=== PATIENT | female | born 1980 | race Caucasian/White ===

== ENCOUNTER 2019-03-26 16:39 | Emergency (ER) | payer MEDICAID, OTHER ==
[~2019-03-26] VITALS: Ht 170.2 cm; Wt 57.7 kg
[2019-03-26 16:50] VITALS: BP 132/81
--- NOTE | 2019-03-26 16:50 | NUR ---
PATIENT AMBULATED TO ER BED 5.
--- NOTE | 2019-03-26 17:12 | NUR ---
Dr. Cruz evaluating patient at bedside.
--- NOTE | 2019-03-26 17:16 | NUR ---
PT CAME WITH CHEST PAIN 4/10 , RADIATING TOWARS HER RT SHOULDER, STATES TO HAVE SOB WHILE WALKING . FEELS HEAVINESS AT THE CHEST AT THIS TIME. PT ON NC , O2 2LPM . PT RESTING COMFORTABLY IN GURNEY, NORMAL BREATHING. LUNGS SOUNDS CLEAR. DENIES ANY PAST MEDICAL HISTORY.
[2019-03-26 18:02] LABS: BASOPHILS % (AUTO) 0.6 % (0.0-2.0); EOSINOPHILS # (AUTO) 0.1 K/uL (0-0.4); HEMATOCRIT 40.2 % (36-48); HEMOGLOBIN 13.5 g/dL (12.0-16.0); LYMPHOCYTES # (AUTO) 2.1 K/uL (2.5-16.5); LYMPHOCYTES % (AUTO) 25.8 % (20.5-51.1); MEAN CORPUSCULAR HEMOGLOBIN 29 pg (27-31); MEAN CORPUSCULAR HGB CONC 34 g/dL (33-37); MONOCYTES # (AUTO) 0.4 K/uL (0.8-1.0); MONOCYTES % (AUTO) 4.8 % (1.7-9.3); NEUTROPHILS # (AUTO) 5.6 K/uL (1.8-7.7); NEUTROPHILS % (AUTO) 67.8 % (42.2-75.2); PLATELET COUNT (AUTO) 221 K/uL (140-450); RED BLOOD CELL COUNT(AUTO) 4.67 MIL/uL (4.20-5.40); RED CELL DISTRIBUTION WIDTH 13.7 % (11.6-13.7); WHITE BLOOD COUNT (AUTO) 8.3 K/uL (4.8-10.8)
[2019-03-26 18:14] LABS: MAGNESIUM 1.9 mg/dL (1.8-2.4)
[2019-03-26 18:15] LABS: PROTHROMBIN TIME 10.8 secs (10.8-13.4)
[2019-03-26 18:18] LABS: APPEARANCE,URINE HAZY (CLEAR); BILIRUBIN,URINE NEGATIVE (NEGATIVE); BLOOD, URINE NEGATIVE (NEGATIVE); COLOR,URINE YELLOW (YELLOW); LEUKOCYTE ESTERASE ,URINE NEGATIVE (NEGATIVE); NITRITE, URINE NEGATIVE (NEGATIVE); PH,URINE 8.5 (5.0-9.0); UGLUCOSE NEGATIVE (NEGATIVE)
[2019-03-26 18:19] LABS: ALBUMIN 3.9 g/dL (3.4-5.0); CARBON DIOXIDE 27.4 mmol/L (21-32); CREATININE 0.9 mg/dL (0.6-1.3); POTASSIUM 3.4 mmol/L (3.5-5.1); TOTAL BILIRUBIN 0.4 mg/dL (0.0-1.0)
[2019-03-26 18:23] LABS: BARBITURATE, URINE NEG. ng/ml (NEG <=200); BENZODIAZEPINE, URINE NEG. ng/mL (NEG <=200); CANNABINOID, URINE POS. ng/mL (NEG <=50); COCAINE, URINE NEG. ng/mL (NEG <=300); OPIATE, URINE NEG. ng/mL (NEG <=2000); PHENCYCLIDINE SCREEN,URINE NEG. ng/mL (NEG <=25)
[2019-03-26 18:24] LABS: C-REACTIVE PROTEIN QUANT < 0.2 mg/dL (0.0-0.9)
[2019-03-26 18:30] LABS: D-DIMER < 100 ng/ml (0-400)
--- NOTE | 2019-03-26 18:30 | NUR ---
PATIENT RESTING AT THIS TIME. NO SIGNS OF DISTRESS.
[2019-03-26 19:29] VITALS: BP 132/88
--- NOTE | 2019-03-26 19:29 | NUR ---
Patient discharged with v/s stable. Written and verbal after care instructions given and explained. Patient alert, oriented and verbalized understanding of instructions. Ambulatory with steady gait. All questions addressed prior to discharge. ID band removed. Patient advised to follow up with PMD. Rx of VISTARIL 25MG given. Patient educated on indication of medication including possible reaction and side effects. Opportunity to ask questions provided and answered.
== END 2019-03-26 19:29 | disposition home or self-care (01) ==
LOC: MED 16:39
DX: F41.0 Panic disorder [episodic paroxysmal anxiety] (principal); F12.90 Cannabis use, unspecified, uncomplicated
CPT/HCPCS: 36415; 71045; 80053; 80305; 81003; 81025; 83735; 83880; 84484; 85025; 85379; 85610; 85730; 86140; 93005; 99284; G0482; Q0092

== ENCOUNTER 2020-05-11 16:40 | Emergency (ER) | payer MEDICAID, OTHER ==
[~2020-05-11] VITALS: Ht 170.2 cm; Wt 62.1 kg
[2020-05-11 16:45] VITALS: BP 147/90
--- NOTE | 2020-05-11 16:48 | NUR ---
Pt ambulated to bed 5.
--- NOTE | 2020-05-11 17:00 | NUR ---
PT C/O EPIGASTRIC PAIN ACCOMPANIED BY NAUSEA AND VOMITING SINCE YESTERDAY, SEEN AT [facility] AND DIAGNOSED WITH GASTRITIS. STATES SHE WANTS TESTS AND ULTRASOUND DONE. AAOX4 WITH EVEN AND STEADY GAIT; PT DENIES ANY FEVER, CP, SOB, OR COUGH AT THIS TIME; PATIENT STATES PAIN OF 10/10 AT THIS TIME; VSS; PATIENT POSITIONED FOR COMFORT; HOB ELEVATED; BEDRAILS UP X1; BED DOWN. ER MADE AWARE OF PT STATUS. Addendum: 05/11/20 at 1812 by [facility] PT ALSO C/O OF LOWER BACK PAIN AT THIS TIME.
[2020-05-11] MEDS: NACL 0.9% 1,000 ML IV ONE (17:15)
[2020-05-11] MEDS: MORPHINE SULFATE 4 MG/ML SYR IVP ONE ×2 (17:16→19:19)
[2020-05-11] MEDS: ONDANSETRON 4 MG/2 ML VIAL IVP ONE ×2 (17:16→19:54)
[2020-05-11 17:18] LABS: BASOPHILS % (AUTO) 0.2 % (0.0-2.0); EOSINOPHILS % (AUTO) 0.2 % (0.0-4.0); HEMATOCRIT 44.1 % (36-48); HEMOGLOBIN 14.4 g/dL (12.0-16.0); LYMPHOCYTES # (AUTO) 1.6 K/uL (2.5-16.5); LYMPHOCYTES % (AUTO) 9.4 % (20.5-51.1); MEAN CORPUSCULAR HEMOGLOBIN 29 pg (27-31); MEAN CORPUSCULAR HGB CONC 33 g/dL (33-37); MEAN CORPUSCULAR VOLUME 87.8 fL (80-94); MONOCYTES # (AUTO) 0.9 K/uL (0.8-1.0); NEUTROPHILS # (AUTO) 14.7 K/uL (1.8-7.7); NEUTROPHILS % (AUTO) 85.2 % (42.2-75.2); PLATELET COUNT (AUTO) 277 K/uL (140-450); RED BLOOD CELL COUNT(AUTO) 5.03 MIL/uL (4.20-5.40); RED CELL DISTRIBUTION WIDTH 12.9 % (11.6-13.7); WHITE BLOOD COUNT (AUTO) 17.2 K/uL (4.8-10.8)
[2020-05-11 17:33] LABS: ALBUMIN 4.4 g/dL (3.4-5.0); ANION GAP 22.1 (8-16); CREATININE 0.9 mg/dL (0.6-1.3); POTASSIUM 3.1 mmol/L (3.5-5.1); TOTAL BILIRUBIN 0.7 mg/dL (0.0-1.0)
--- NOTE | 2020-05-11 18:20 | NUR ---
PATIENT REPORTS HAVING PRESSURE LIKE STERNAL CP 01/20. DR. MOHAN NOTIFIED.
[2020-05-11] MEDS ORDERED: ONDANSETRON 4 MG/2 ML VIAL ONE (19:50)
[2020-05-11 19:56] VITALS: BP 127/75
--- NOTE | 2020-05-11 19:56 | NUR ---
Patient discharged with v/s stable. Written and verbal after care instructions given and explained. Patient alert, oriented and verbalized understanding of instructions. with steady gait. All questions addressed prior to discharge. ID band removed. Patient advised to follow up with PMD. Rx of [place] and Zofran given. Patient educated on indication of medication including possible reaction and side effects. Opportunity to ask questions provided and answered.
== END 2020-05-11 19:56 | disposition home or self-care (01) ==
LOC: MED 16:40
DX: A08.4 Viral intestinal infection, unspecified (principal)
CPT/HCPCS: 36415; 74176; 76705; 80053; 83690; 85025; 93005; 96361; 96374; 96375; 96376; 99285; J2270; J2405; J7030; Q0092